=== PATIENT | male | born 1985 | race Caucasian/White ===

== ENCOUNTER 2018-04-27 01:54 | Inpatient (IN) ==
[2018-04-28] MEDS ORDERED: Metoprolol Tartrate 25 MG Tablet PO SCH (00:01)
[2018-04-28] MEDS ORDERED: Sodium Chlor 0.9% Inj 500 ML IV.SIG SCH (00:01)
[2018-04-28] MEDS ORDERED: Chlorhexidine Gluconate 2% 1 Pack (2 Cloths) TOPICAL SCH (00:01)
[2018-04-28] MEDS ORDERED: Acetaminophen 325 MG Tablet PO PRN (00:01)
[2018-04-28] MEDS ORDERED: Insulin NovoLIN Regular Correctional Sugar Inj SQ SCH (00:01)
[2018-04-28] MEDS ORDERED: Morphine Inj 4 MG/ML Vial ONE (00:11)
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
[2018-04-28] MEDS ORDERED: Enoxaparin Inj 40 MG/0.4 ML Syringe SQ SCH (02:00)
[2018-04-28] MEDS: Morphine Inj 4 MG/ML Vial IV.PUSH PRN ×3 (03:10→09:41)
[2018-04-28] MEDS: Gentamicin Inj 80 MG in Sodium Chlor 0.9% Inj 100 ML IV.SIG SCH ×3 (04:08→21:42)
[2018-04-28] MEDS: Pantoprazole Inj 40 MG Vial IV.PUSH SCH (08:10)
[2018-04-28 08:26] LABS: Baso % (Auto) 0.5 % (0.0-2.0); Eos # (Auto) 0.1 th/mm3 (0.0-0.4); Eos % (Auto) 1.2 % (0.0-4.0); Hematocrit 39.7 % (39.0-51.0); Hemoglobin 13.6 gm/dL (13.0-17.0); Lymph # (Auto) 2.4 th/mm3 (1.0-4.8); Lymph % (Auto) 26.6 % (9.0-44.0); Mean Corpuscular HGB Conc 34.3 % (32.0-36.0); Mean Corpuscular Hemoglobin 32.3 pg (27.0-34.0); Mean Corpuscular Volume 94.2 fL (80.0-100.0); Mean Platelet Volume 8.5 fL (7.0-11.0); Mono # (Auto) 1.1 th/mm3 (0.0-0.9); Mono % (Auto) 11.6 % (0.0-8.0); Neut # (Auto) 5.5 th/mm3 (1.8-7.7); Neut % (Auto) 60.1 % (16.0-70.0); Platelet Count 138 th/mm3 (150-450); Red Blood Count 4.21 mil/mm3 (4.50-5.90); Red Cell Distribution Width 13.8 % (11.6-17.2); White Blood Count 9.2 th/mm3 (4.0-11.0)
[2018-04-28 08:49] LABS: Anion Gap 8 meq/L (5-15); Blood Urea Nitrogen 8 mg/dL (7-18); Calcium 8.1 mg/dL (8.5-10.1); Carbon Dioxide 26.9 meq/L (21.0-32.0); Chloride 107 meq/L (98-107); Glomerular Filtration Rate Greater Than 89 mL/min (>89); Glucose,Random 88 mg/dL (74-106); Potassium 3.8 meq/L (3.5-5.1); Sodium 142 meq/L (136-145)
--- NOTE | 2018-04-28 10:16 | P.PNOP ---
Subjective Interval history: Patient resting comfortably at present. Does complain of right ankle pain and jaw pain. Physical Exam Vital signs: Vital Signs 04/28/18 03:46 04/28/18 04:00 Temperature 98.1 F Pulse Rate 61 65 Respiratory Rate 21 Blood Pressure 145/75 H Pulse Oximetry 99 Intake & Output 04/27/18 04/28/18 04/28/18 18:59 06:59 18:59 Intake Total 0 / 0 200 / 200 Output Total 600 / 600 Balance -600 / -600 200 / 200 Weight 81.9 kg 81.9 kg Intake: IV 200 / 200 Gentamicin Inj 80 MG In NS Inj 100 / 100 100 ML @ 200 mls/hr IV.SIG Q8H KEN Rx#:[id number] Ancef Inj 1,000 MG In NS Inj 100 / 100 100 ML @ 200 mls/hr IV.SIG Q8H KEN Rx#:[id number] Oral 0 / 0 Output: Urine 600 / 600 Other: Date of Last Bowel Movement 04/26/18 Narrative: Awake, alert, no acute distress Right lower extremity: Short leg splint in place without drainage. Patient demonstrates positive EHL and FHL. Sensation intact over toes. Brisk cap refill. Assessment and Plan - Assessment and Plan 33-year-old gentleman, postop day 1 status post open reduction internal fixation of his right ankle fracture dislocation 1. Nonweightbearing right lower extremity in splint. Splint should remain in place until follow-up. Recommend elevation. 2. Physical therapy for mobilization 3. Anticoagulation per primary team 4. Ortho stable for discharge. Follow-up in 2 weeks in my office.
[2018-04-28] MEDS ORDERED: HYDROmorphone PF Inj 2 MG/ML Vial IV.PUSH PRN (11:00)
[2018-04-28] MEDS: HYDROmorphone PF Inj 2 MG/ML Vial IV.PUSH PRN ×4 (12:18→21:01)
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
[2018-04-28] MEDS: Chlorhexidine Gluconate 0.12% Liq 15 ML UDC SWISH-SPIT SCH ×2 (15:25→21:04)
[2018-04-29] MEDS: HYDROmorphone PF Inj 2 MG/ML Vial IV.PUSH PRN ×4 (02:55→12:13)
[2018-04-29] MEDS: Gentamicin Inj 80 MG in Sodium Chlor 0.9% Inj 100 ML IV.SIG SCH ×3 (03:46→19:40)
--- NOTE | 2018-04-29 08:14 | P.PNOP ---
Subjective Interval history: Patient resting, this morning. He is anxious about what is going on with his mandible Physical Exam Vital signs: Vital Signs 04/28/18 09:43 04/28/18 12:00 04/28/18 12:48 Temperature 97.7 F Pulse Rate 53 L Respiratory Rate 18 18 18 Blood Pressure 109/64 Pulse Oximetry 98 04/28/18 15:15 04/28/18 16:00 04/28/18 19:47 Temperature 97.8 F 98.2 F Pulse Rate 73 72 Respiratory Rate 18 18 Blood Pressure 145/68 H 119/76 Pulse Oximetry 97 93 L 94 L 04/28/18 23:52 04/29/18 00:21 04/29/18 04:00 Temperature 98.0 F 97.7 F Pulse Rate 94 H 73 81 Respiratory Rate 18 18 Blood Pressure 117/78 128/71 Pulse Oximetry 97 96 Intake & Output 04/28/18 04/29/18 04/29/18 18:59 06:59 18:59 Intake Total 2080 / 2080 2202 / 2202 Output Total 600 / 600 450 / 450 Balance 1480 / 1480 1752 / 1752 Weight 81.9 kg Intake: IV 1600 / 1600 2202 / 2202 NS + KCl 20 mEq Inj 1,000 ML @ 1000 / 1000 2000 / 2000 100 mls/hr IV.CONT .Q10H KEN Rx #:[id number] Gentamicin Inj 80 MG In NS Inj 400 / 400 102 / 102 100 ML @ 200 mls/hr IV.SIG Q8H KEN Rx#:[id number] Ancef Inj 1,000 MG In NS Inj 200 / 200 100 / 100 100 ML @ 200 mls/hr IV.SIG Q8H KEN Rx#:[id number] Oral 480 / 480 0 / 0 Output: Urine 600 / 600 450 / 450 Other: # Voids 7 Date of Last Bowel Movement 04/26/18 04/26/18 # Bowel Movements 0 Narrative: Awake, alert, no distress Right lower extremity: Splint in place over lower leg and ankle. Patient understood positive EHL, FHL. Sensation intact. Brisk cap refill. Assessment and Plan - Assessment and Plan 33-year-old gentleman, postop day 2 status post open reduction internal fixation of his right ankle fracture dislocation 1. Nonweightbearing right lower extremity in splint. Splint should remain in place until follow-up. Recommend elevation. 2. Physical therapy for mobilization 3. Anticoagulation per primary team 4. Ortho stable for discharge. Follow-up in 2 weeks in my office.
[2018-04-29] MEDS: Chlorhexidine Gluconate 0.12% Liq 15 ML UDC SWISH-SPIT SCH ×2 (08:49→20:22)
[2018-04-29] MEDS: Pantoprazole Inj 40 MG Vial IV.PUSH SCH (08:49)
[2018-04-29] MEDS ORDERED: HYDROcodone 5 MG/Homatropine 1.5 MG Syrup 5 ML UDC PO PRN (12:36)
[2018-04-29] MEDS: Acetaminophen-HYDROcodone 325/7.5 Liq 15 ML UDC PO PRN ×3 (15:43→21:51)
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
[2018-04-30] MEDS: Acetaminophen-HYDROcodone 325/7.5 Liq 15 ML UDC PO PRN ×6 (01:44→16:55)
[2018-04-30] MEDS: Gentamicin Inj 80 MG in Sodium Chlor 0.9% Inj 100 ML IV.SIG SCH ×2 (05:00→11:09)
[2018-04-30] MEDS: Pantoprazole Inj 40 MG Vial IV.PUSH SCH (08:15)
[2018-04-30] MEDS: Chlorhexidine Gluconate 0.12% Liq 15 ML UDC SWISH-SPIT SCH (08:15)
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
== END 2018-04-30 18:01 | disposition home or self-care (01) ==
LOC: N06 04:42
PROVIDERS: ADMIT Surgery; ATTEND Surgery